=== PATIENT | female | born 1990 | race Two or more races ===

== ENCOUNTER 2018-04-03 10:38 | Emergency (ER) | payer OTHER ==
[~2018-04-03] VITALS: Ht 154.9 cm; Wt 47.6 kg
[~2018-04-03 10:38] MED LIST: IBUPROFEN600 MG ORAL
[2018-04-03] MEDS ORDERED: NKM (10:44)
[2018-04-03 10:49] VITALS: BP 114/75
[2018-04-03 11:37] VITALS: BP 114/75
--- NOTE | 2018-04-05 14:18 | Emergency Room Report ---
History of Present Illness General Chief Complaint: Wound Recheck/Suture Removal Source: Patient Present Illness HPI 27-year-old female presents ED for evaluation. Patient is complaining of right thumb pain. States she was here a few days ago for right thumb pain secondary to fall. Had x-rays which were subsequent negative and discharged. Patient is here continuing to have pain. Pain is throbbing, 8 out of 10, nonradiating. Denies fevers or chills. Denies any discharge. Denies any bleeding. No other aggravating relieving factors. Denies any other associated symptoms Allergies: Coded Allergies: No Known Allergies (Unverified , 03/30/18) Patient History Past Medical History: none Past Surgical History: none Pertinent Family History: none Social History: Denies: smoking, alcohol use, drug use Now: No Immunizations: UTD Reviewed Nursing Documentation: PMH: Agreed; PSxH: Agreed Nursing Documentation-PMH Past Medical History: No Stated History Review of Systems All Other Systems: negative except mentioned in HPI Physical Exam Vital Signs Date Time Temp Pulse Resp B/P (MAP) Pulse Ox O2 Delivery O2 Flow Rate FiO2 04/03/18 10:39 99.1 87 16 114/75 98 Room Air 99.1 Sp02 EP Interpretation: reviewed, normal General Appearance: no apparent distress, alert, GCS 15, non-toxic Head: normocephalic Eyes: bilateral eye normal inspection, bilateral eye PERRL ENT: normal ENT inspection Neck: normal inspection Respiratory: normal inspection Cardiovascular #1: normal inspection Gastrointestinal: normal inspection Rectal: deferred Genitourinary: no CVA tenderness Musculoskeletal: normal range of motion, tender - R thumb. gel on nail Neurologic: alert, oriented x3, responsive, motor strength/tone normal, sensory intact, speech normal Psychiatric: normal inspection Skin: normal inspection Lymphatic: normal inspection Medical Decision Making Diagnostic Impression: Primary Impression: Encounter for wound re-check ER Course Hospital Course 27 yo F presents with continued pain to R thumb. s/p fall x 2 days Clinical course Patient placed on stretcher. After initial history, physical exam reveals young female in no acute distress. The right thumb there is full range of motion, no crepitus or bruising. No swelling. There is gel applied to the right thumb nail bed. Unable to visualize nailbed. My concern is for subungual hematoma based on symptoms described. We do not have the materials in ER to remove the gel. Patient states she does not want to wait and will go home and have the Gel removed. I instructed patient to return if there is purple/black discoloration to the nailbed. In that case she will require trephination to release the blood Patient agrees to plan. Displays understanding of process Diagnosis - encounter for wound re-check Stable and discharged to home. have gel removed. Return to ED if discoloration to nailbed. Followup with PMD. Last Vital Signs Date Time Temp Pulse Resp B/P (MAP) Pulse Ox O2 Delivery O2 Flow Rate FiO2 04/03/18 11:37 99.1 16 114/75 98 Room Air 99.1 04/03/18 10:39 87 Status: improved Disposition: HOME, SELF-CARE Condition: Stable Referrals: NOT CHOSEN IPA/,REFERRING (PCP) Patient Instructions: Subungual Hematoma, Usib-as-Exwq Miah Coy MD Apr 05, 2018 14:18
== END 2018-04-03 11:37 | disposition home or self-care (01) ==
LOC: EMR 11:14
DX: M79.644 Pain in right finger(s) (principal); Z48.00 Encounter for change or removal of nonsurgical wound dressing
CPT/HCPCS: 99281

== ENCOUNTER 2018-08-15 19:39 | Emergency (ER) | payer BC, OTHER ==
[~2018-08-15] VITALS: Ht 152.4 cm; Wt 48.5 kg
[~2018-08-15 19:39] MED LIST changes: +NKM
--- NOTE | 2018-08-15 20:11 | NUR ---
ED Nurse Note: pt walked in Ed c/o right arm rash, pt states she noticed them couple days ago and progressively worsening, states she has some discomfort and doesn't know if it feels itchy or painful. noted skin rash clusters with redbumps throughtout right arm. no discharge or s/s infection at this time, will cont monitor.
[2018-08-15] MEDS ORDERED: CEPHALEXIN500 MG ORAL (20:38)
[2018-08-15] MEDS ORDERED: KENALOG 0.5% CR15 GM APPLIC (20:38)
[2018-08-15] MEDS ORDERED: BACITRACIN-P28.35 GM TP (20:38)
--- NOTE | 2018-08-15 20:40 | Emergency Room Report ---
History of Present Illness General Chief Complaint: Skin Rash/Abscess Source: Patient Present Illness HPI 28-year-old female patient presents the ER complaining of rash on her right arm for the past 5 days. Reports rash initially began on her right forearm and is slowly spread up her arm. Reports itchiness, pain, burning sensation at the affected site. Denies bleeding or discharge.. Reports has been using topical antibiotic for relief of symptoms. Denies contacts with similar symptoms. Denies vomiting or fever. Denies other acute aggravating or relieving symptoms. Denies new detergents or soaps. Denies recent outdoor trip or camping. Allergies: Coded Allergies: No Known Allergies (Unverified , 03/30/18) Patient History Past Medical History: see triage record Last Menstrual Period: jun Now: No Reviewed Nursing Documentation: PMH: Agreed; PSxH: Agreed Nursing Documentation-PMH Past Medical History: No Stated History Review of Systems All Other Systems: negative except mentioned in HPI Physical Exam Vital Signs Date Time Temp Pulse Resp B/P (MAP) Pulse Ox O2 Delivery O2 Flow Rate FiO2 08/15/18 20:04 98.4 84 16 108/71 95 Room Air Sp02 EP Interpretation: reviewed, normal General Appearance: well appearing, no apparent distress, alert, GCS 15, non- toxic Head: normocephalic, atraumatic Eyes: bilateral eye normal inspection, bilateral eye PERRL ENT: hearing grossly normal, normal pharynx, no angioedema, normal voice, uvula midline, moist mucus membranes Neck: full range of motion Respiratory: lungs clear, normal breath sounds, no rhonchi, no respiratory distress, no accessory muscle use, no wheezing, speaking full sentences Cardiovascular #1: regular rate, rhythm, no edema Musculoskeletal: back normal, digits/nails normal, gait/station normal, normal range of motion, non-tender Psychiatric: mood/affect normal Skin: other - Right mid forearm: maculopapular erythematous eruption on right forearm, erythematous macules in a linear progression noted intermittently on right upper extremity extending proximally to right axilla, tender to palpation , no drainage, no palpable mass, no erythema or edema, no target sign Medical Decision Making PA Attestation Dr. Rousseau is my supervising Physician whom patient management has been discussed with. Diagnostic Impression: Primary Impression: Rash and other nonspecific skin eruption ER Course Pt. presents to the ED c/o rash. Ddx considered but are not limited to atopic dermatitis, scabies, shingles, impetigo, bed bugs. Vital signs: are WNL, pt. is afebrile ER COURSE Physical exam shows signs and symptoms consistent with possible bedbugs with local infection. Will provide patient with topical and oral antibiotics and triamcinolone to help alleviate symptoms. No contacts with similar symptoms, low suspicion for scabies, does not require permethrin at this time. Advised patient to clean decontaminate all clothing, bedding, towels. ER precautions given. Followup with dermatology. Take Tylenol for pain symptoms. DISCHARGE: -Rx given for Bacitracin -Rx given for Keflex -Rx given for Triamcinolone. Do not apply to face or skin creases. At this time pt. is stable for d/c to home. Patient resting comfortably, in no acute distress, nontoxic appearing. Will provide printed patient care instructions, and any necessary prescriptions. Care plan and follow up instructions have been discussed with the patient prior to discharge. Patient provided with list of healthcare clinics to establish primary care physician. Patient instructed to follow-up with primary care provider in 3 - 5 days. Patient questions asked and answered. ER precautions given. Patient instructed to return to ER immediately for any new or worsening of symptoms including but not limited to increasing SOB, persistent fever. - Please note that this Emergency Department Report was dictated using [employer] person technology software, occasionally this can lead to erroneous entry secondary to interpretation by the dictation equipment. Last Vital Signs Date Time Temp Pulse Resp B/P (MAP) Pulse Ox O2 Delivery O2 Flow Rate FiO2 08/15/18 20:04 98.4 84 16 108/71 95 Room Air Status: improved Disposition: HOME, SELF-CARE Condition: Stable Scripts Cephalexin* (KEFLEX*) 500 Mg Capsule 500 MG ORAL EVERY 12 HOURS, #14 CAP 0 Refills Prov: Blake Pal P.A. 08/15/18 Triamcinolone Acet (Triamcinolone Acetonide) 15 Gm Cream..g. 15 GM APPLIC BID, #15 GM Prov: Blake Pal.A. 08/15/18 Bacitracin/Polymyxin B Sulfate (BACITRACIN-POLYMYXIN OINTMENT) 28.35 Gm Oint...g. 1 APPLIC TP BID, #28 GM Prov: Blake Pal 08/15/18 Patient Instructions: Bedbugs, Vulp-[id number]-Zgjq, Insect Bite, [id number]-Khqq, Rash, Xejj-jf-[id number] Additional Instructions: Followup with primary care provider in 3 -5 days. Request referral to dermatology as needed. Do not scratch or itch. Apply cool compresses to affected area. Wash all clothes and bedding. Take medications as directed. Do not apply topical steroid medication to face or skin creases. SE Benadryl drowsiness, do not take prior to drinking, driving, operating heavy machinery. Take Claritin during the day and Benadryl at night for itching symptoms. Patient questions asked and answered. ER precautions given, patient instructed to return to ER immediately for any new or worsening of symptoms. [facility] Blake Pal Aug 15, 2018 20:40
--- NOTE | 2018-08-15 20:41 | NUR ---
ED Nurse Note: pt discharge instruction provided w/ prescription, pt wristband removed, pt education done via discussion and handout, pt advised to follow up with pcp or return to ed if s/s worsen or new s/s develop, pt verbalized understanding and agrees with plan, all belongings left with pt.
[2018-08-15 20:45] VITALS: BP_SYST 108; BP_SYST 110; BP_DIAS 67; BP_DIAS 71
== END 2018-08-15 22:00 | disposition home or self-care (01) ==
LOC: EMR 21:06
DX: R21 Rash and other nonspecific skin eruption (principal)
CPT/HCPCS: 99282

== ENCOUNTER 2020-10-19 10:05 | Emergency (ER) | payer BC ==
[~2020-10-19] VITALS: Ht 152.4 cm; Wt 49.0 kg
[~2020-10-19 10:05] MED LIST changes: +BACITRACIN-P28.35 GM TP; +CEPHALEXIN500 MG ORAL; +KENALOG 0.5% CR15 GM APPLIC
[2020-10-19 10:26] VITALS: BP 108/60
--- NOTE | 2020-10-19 10:26 | NUR ---
came to er complaints of rash on left eyelid . seen by pmd and given meds but still has rash
[2020-10-19] MEDS ORDERED: EPIPEN 2-P0.3 MG/0.3 IM (10:41)
[2020-10-19] MEDS ORDERED: BENADRYL25 M3 PO (10:41)
--- NOTE | 2020-10-19 10:42 | Emergency Room Report ---
History of Present Illness General Chief Complaint: Skin Rash/Abscess Source: Patient Present Illness HPI 30-year-old female with past medical history of atopy presents to the emergency department with 3 weeks of ongoing upper eyelid swelling and itchy irritation. Patient states that she saw a black powder glazing operator on October 08, 2020 and was prescribed triamcinolone 0.025% ointment for swelling. She used the triamcinolone cream until 10/11/2020, and it fully alleviated her symptoms, but soon after discontinuing the cream, she had rebound symptoms where her eyelids were much more swollen. The swelling seems to be worse in the morning and she thinks she is allergic to a mold growing on her window near where she sleeps. Symptoms improve by the end of the day. She denies any visual blurring, contact lens use, eye discharge, headache, fever, neck pain, nausea, vomiting, diarrhea, shortness of breath, sore throat, hoarse voice, stridor, drooling, history of anaphylaxis or angioedema. She denies any recent cosmetic changes, make-up changes, dietary changes, travel. She has been using some CBD oil but then she broke out into a raised itchy rash on the left neck and anterior chest. She took Claritin with relief of the itching, and is waiting for her primary care doctor to see her tomorrow, however she was wondering if she could get specific allergy testing here in the emergency department. The patient's symptoms were gradual onset, severity was moderate, duration since 21 days. Quality: Itchy Past medical history: atopy Past surgical history: Denies Smoking: Denies Alcohol use: Denies Drug use: Denies Review of systems: CONST: No fevers or chills, No night sweats PULMONARY: No productive cough, No shortness of breath CARDIAC: No chest pain, No palpitations GI: No vomiting, No diarrhea , No melena_or_BRBPR : No dysuria, No hematuria, No discharge NEURO: No new_focal_weakness_or_numbness, No confusion, No vision changes 14 point Review of Systems is otherwise negative except per HPI Physical Exam: GENERAL: Awake_alert_ nontoxic, no acute distress Spo2 98% on RA -normal EYES: Extraocular muscles are intact. Conjunctivae clear. Scant Symmetric bilateral upper eyelid swelling and chronic appearing redness/dryness. No cellulitis. No palpable crepitus. No hordeolum or stye. No proptosis. No cycloplegia. No hyphema. No hypopyon. No signs of entrapment. External: no evidence of periorbital rash, swelling, proptosis, lacerations, abrasions, or foreign body (OU) Conjunctiva: normal, no injection or chemosis (OU) Sclera: white, without any injection (OU) Cornea: clear without any visible defect, foreign body, or corneal ulcer Foreign body: none visualized, upper eyelid flipped (OU) Visual acuity: 20/13 OS, 20/13 OD, 20/13 OU. Fundoscopy: no papilledema Pupils: equal, round, and reactive bilaterally Extraocular movements intact without evidence of entrapment Visual dolan full to confrontation ENT: External nose and ear normal_in_appearance. Oropharynx clear. Head_atraumatic, Moist_oral_mucosa Speaks in full and complete sentences. No stridor, drooling, or hoarse voice. NECK: No JVD. No meningismus. No thyromegaly. Supple. Trachea midline RESP: Normal respiratory effort. Symmetric rise. No stridor. Clear_to_auscultation_No_rales_No_wheezes CARDIAC: Regular rate and regular rhytm. No_significant pedal edema. ABDOMEN: Soft. Nondistended. Nontender_No_rebound_or_guarding. MSK: Normal muscle tone, without rigidity. Extremities without asymmetric deformity or swelling. SKIN: Warm and dry. No visible cyanosis or pallor. No petechiae. NEUROLOGIC: Alert, oriented x3. Motor_and_sensation_grossly_intact. No truncal ataxia. Gait_normal Psych: Normal mood and affect, normal judgment and insight - COORDINATION OF CARE Case was discussed with: Patient Any labs and imaging that were ordered were interpreted as part of the medical decision making: Medical Decision Making/Plan: DDx: allergy, blepharitis, atopy, eczema, hordeolum, stye. Doubt periorbital cellulitis, orbital cellulitis, angioedema or anaphylaxis Initial VSS were stable Airway is intact with no stridor, drooling, or increased WOB. No oral, tongue or lip swelling noted. Patient appears to be presenting with mild to moderate allergic reaction involving the upper eyelids, there is no evidence of angioedema, no oral involvement, no difficulty breathing or nausea vomiting. Patient is nontoxic and well-appearing the patient is tolerating fluids. The findings are minimal and due to nonprogression of symptoms here the patient is safe to discharge home. The patient feels comfortable with plan and will return immediately if symptoms begin to worsen. Patient will be discharged with an EpiPen and Benadryl. Extensive education given on epi pen usage Patient was instructed to avoid all potential allergic stimuli in the future. The patient was instructed to avoid potential precipitating factor and to follow up with their regular physician for referral to alteration specialist for definitive allergy testing. Pertinent results reviewed with the patient. I educated the patient on the current treatment plan including the risks, benefits, and alternatives. I also discussed the extent and limitations of the current evaluation. The patient expressed understanding and agreement with plan. I recommended PMD follow-up tomorrow as scheduled and also to go back to the derm that initially saw her Dr Alyssa Dey. Also advised that the patient return to the Emergency Department as soon as possible if they experience any new, persistent, or worsening symptoms. Allergies: Coded Allergies: No Known Allergies (Unverified , 03/30/18) COVID-19 Screening Contact w/high risk pt: No Experienced COVID-19 symptoms?: No COVID-19 Testing performed FURRIER DESIGNER: No Patient History Now: No Nursing Documentation-[facility] Past Medical History: No Stated History Physical Exam Vital Signs Date Time Temp Pulse Resp B/P (MAP) Pulse Ox O2 Delivery O2 Flow Rate FiO2 10/19/20 10:22 98.2 78 18 108/60 (76) 98 Room Air Sp02 EP Interpretation: reviewed, normal Medical Decision Making Diagnostic Impression: Primary Impression: Allergic reaction Additional Impressions: Superficial swelling of eyelid Swelling of upper eyelid Last Vital Signs Date Time Temp Pulse Resp B/P (MAP) Pulse Ox O2 Delivery O2 Flow Rate FiO2 10/19/20 10:26 98.2 18 108/60 98 Room Air 10/19/20 10:22 78 Disposition: HOME, SELF-CARE Admit Decision Time: 10:39 Condition: Stable Scripts Diphenhydramine HCl (Benadryl) 25 Mg Capsule 25 MG PO QID for allergy for 5 Days, #20 CAP Prov: Atiya Escobar D.Nova 10/19/20 Epinephrine (Epipen 2-Delfino) 0.3 Mg/0.3 Ml Auto.injct 0.3 MG IM ONCE for anaphylaxis for 1 Day, #1 EA Prov: Atiya Escobar D.O. 10/19/20 Referrals: NOT CHOSEN IPA/,REFERRING (PCP) Patient Instructions: Allergy Test, Hives, [id number]-bb-[id number] Additional Instructions: Instructions for patient/lime spreader: Follow up with your physician in 1 day for wound check. Request referral from your primary care doctor tomorrow to a alteration specialist for definitive allergy testing. Keep your EpiPen's accessible in case of anaphylaxis which we discussed extensively. Please only use EpiPen in case of severe allergy or airway emergency. Refrain from using any new soaps or cosmetics on your face. Follow-up with dermatology within 1 week. Do not rub your eyes. Follow-up with your doctor sooner if your condition requires a more timely clinical reevaluation. Return to the emergency department immediately if you feel that your condition is worsening or if you have any new or concerning symptoms. Review your discharge instructions and take any prescriptions given as instructed. [facility] PROVIDES FREE OR LOW-COST HEALTH SERVICES TO PEOPLE WHO CAN SHOW PROOF THAT THEY LIVE IN [facility]. TO FIND MORE CLINICS PARTNERED WITH [facility] TO PROVIDE SERVICE, PLEASE CALL . Atiya Escobar D.O. Oct 19, 2020 10:42
[2020-10-19 10:51] VITALS: BP 108/60
--- NOTE | 2020-10-19 10:52 | NUR ---
discharged home with instruction and ex follow up with pmd
== END 2020-10-19 10:52 | disposition home or self-care (01) ==
LOC: EMR 10:20
DX: T78.40XA Allergy, unspecified, initial encounter (principal); X58.XXXA Exposure to other specified factors, initial encounter; H02.844 Edema of left upper eyelid; H02.841 Edema of right upper eyelid
CPT/HCPCS: 99282